=== PATIENT | female | born 1985 | race Caucasian/White ===

== ENCOUNTER 2019-12-16 00:30 | Day surgery (SDC) | payer OTHER, SELFPAY ==
[2019-12-02 13:36] VITALS: BMI 27.8
[2019-12-16] VITALS (11 sets, daily range): BP systolic 106–142; BP diastolic 50–86; PULSE 81–108; RESP 11–15; TEMP 36.5–36.7; O2SAT 95–100
[2019-12-16 11:25] LABS: Hematocrit 42.8 % (37.0-47.0); Hemoglobin 13.6 g/dL (12.0-15.0); Mean Corpuscular HGB Conc 31.8 g/dl (32-36); Mean Corpuscular Hemoglobin 27.5 pg (26-34); Mean Corpuscular Volume 86.6 fl (80-100); Mean Platelet Volume 10.3 fl (7.4-10.4); Platelet Count Result 264 k/mm3 (150-375); Red Blood Count 4.94 M/mm3 (4.2-5.4); Red Cell Distribution Width 13.8 % (11.5-14.5); White Blood Count 8.2 K/mm3 (4.5-10.0)
[2019-12-16] MEDS: LACTATED RINGERS 1,000 ML 30 ML IV CONT ×2 (11:32→14:34)
--- NOTE | 2019-12-16 11:43 | WPDANESEPPF ---
Anes - Initial Pre Proc Eval Procedure: Operation Date: 12/16/19 13:00 Proposed Procedures p Laparoscopic Bilateral Tubal Ligation with Salpingectomy - Francisca Novak MD Date/Time: 12/16/19 11:43 Surgeon: Francisca Novak MD Pre Op Diagnosis: desired sterilization Patient Data Age: 34 Gender: F Height: 5 ft 2 in Weight: 68.95 kg Last Vital Signs Temp 98.0 F 12/16/19 11:26 Pulse 81 12/16/19 11:26 Resp 14 12/16/19 11:26 BP 111/73 12/16/19 11:26 Pulse Ox 100 12/16/19 11:26 Allergies Allergy/AdvReac Type Severity Reaction Status Date / Time codeine Allergy Unknown syncope Verified 12/16/19 10:55 Bumble Bee Allergy Unknown Anaphylactic Uncoded 12/16/19 10:55 Shock Home Medications Medication Instructions Recorded Confirmed Type epinephrine 0.3 mg IM DIRECTED PRN 12/02/19 12/16/19 History escitalopram oxalate 10 mg PO DAILY 12/02/19 12/16/19 History trazodone 100 mg PO HS 12/02/19 12/16/19 History Laboratory Tests 12/16/19 11:17 WBC 8.2 K/mm3 K/mm3 (4.5-10.0) RBC 4.94 M/mm3 M/mm3 (4.2-5.4) Hgb 13.6 g/dL g/dL (12.0-15.0) Hct 42.8 % % (37.0-47.0) MCV 86.6 fl fl (80-100) MCH 27.5 pg pg (26-34) MCHC 31.8 g/dl L g/dl (32-36) RDW 13.8 % % (11.5-14.5) Plt Count 264 k/mm3 k/mm3 (150-375) MPV 10.3 fl fl (7.4-10.4) Patient hx anesthesia problems: none Family hx anesthesia problems: none PMFSH Past Medical History Medical History Depression Anes - Eval Final PreProcedure Day of Procedure 12/16/19 11:43 Patient weight: normal Heart: regular rate and rhythm Lungs: clear to auscultation Airway: Mallampati scale class II Neurological: alert and oriented Last oral intake: >/= 8 hours ASA classification: II Emergent: no Anesthetic plan: proceed Anesthesia type and monitoring: general ETT and standard monitoring Informed Consent: The patient's anesthetic plan and its attendant risks and benefits were discussed with the patient/family/POA. Questions were solicited and answers provided to the satisfaction of the patient/family/POA.
--- NOTE | 2019-12-16 13:16 | PM.IMHP ---
H&P: HPI History of Present Illness Chief complaint: desired sterilization Narrative: Gege Queen is a 34 year old female here for desired sterilization. R/b/a all discussed in the office Review of Systems Review of Systems: All systems reviewed & are unremarkable except as noted in HPI and below Constitutional: Constitutional: Reports no additional constitutional complaints Eyes: Eyes: Reports no additional eye complaints ENT: Reports system reviewed and no additional complaints, except as documented Cardiovascular: Cardiovascular: Reports no additional cardiovascular complaints Respiratory: Respiratory: Reports no additional respiratory complaints Gastrointestinal: Gastrointestinal: Reports no additional gastrointestinal complaints Genitourinary: Genitourinary: Reports no additional female genitourinary complaints Musculoskeletal: Musculoskeletal: Reports no additional musculoskeletal complaints Integumentary/Breasts: Skin/Breast: Reports system reviewed and no additional complaints, except as docu Neurologic: Reports system reviewed and no additional complaints, except as documented Psychiatric: Psychiatric: Reports no additional psychiatric complaints PMFSH Past Medical History Medical History Depression Meds Home Medications and Allergies Home Medications Medication Instructions Recorded Confirmed Type epinephrine 0.3 mg IM DIRECTED PRN 12/02/19 12/16/19 History escitalopram oxalate 10 mg PO DAILY 12/02/19 12/16/19 History trazodone 100 mg PO HS 12/02/19 12/16/19 History Allergies Allergy/AdvReac Type Severity Reaction Status Date / Time codeine Allergy Unknown syncope Verified 12/16/19 10:55 Bumble Bee Allergy Unknown Anaphylactic Uncoded 12/16/19 10:55 Shock Vital Signs Vital Signs - 24 hr 12/16/19 11:26 Temperature 36.7 C Pulse Rate 81 Respiratory Rate 14 Blood Pressure 111/73 Pulse Oximetry 100 Exam Const: General: no acute distress HENMT: Ears: TM's normal bilaterally and TM abnormal Eyes: General: appearance normal, both eyes and all related structures Neck: Neck: supple and no JVD Resp: Auscultation: clear to auscultation bilaterally Cardio: Rate: regular rate Rhythm: regular rhythm GI: GI Palp: Yes Soft to palpation : External Female Exam: normal external appearance Skin: General skin exam: normal color and no rashes or lesions noted Neuro: General: gait normal Speech: normal speech Extrem: General: normal to inspection Psych: Mental Status: mental status grossly normal Affect: normal affect H&P: Results Labs Labs: Short CBC 12/16/19 Range/Units 11:17 WBC 8.2 (4.5-10.0) K/mm3 Hgb 13.6 (12.0-15.0) g/dL Hct 42.8 (37.0-47.0) % Plt Count 264 (150-375) k/mm3 Assessment and Plan Additional Plan Plan is for sterilization via laparoscopy. Risk/benefits/alternatives discussed. Plan bilateral salpingectomy per pt request
[2019-12-16] MEDS: KETOROLAC 30 MG/ML VIAL (*BKC) IV PUSH (14:18)
[2019-12-16] MEDS: BUPIVACAINE/EPINEPHRINE 0.5% 30 ML VIAL INFILTRATE (14:23)
--- NOTE | 2019-12-16 14:33 | PM.PROC ---
Procedure Note - Detailed Date of procedure: 12/16/19 Pre-op diagnosis: desired sterilization Post-op diagnosis: other (desired sterilization. Bowel adhesions on left) Procedure performed: Laparoscopic right salpingectomy, left partial salpingectomy/tubal interruption Description of procedure: The patient was taken to the operating room where general was found to be adequate. She was then prepared in dorsal lithotomy position in [facility]. A jean baptiste catheter was placed. A speculum was placed within the vagina and single toothed tenaculum placed on the anterior lip. The uterine manipulator was placed within the cervix and affixed to the tenaculum. Attention was turned to the umbilicus which was injected with 0.5% marcaine with epinephrine, incised in the infraumbilical fold with scalpel and hemastat used to separate the tissue. A veres needle used to enter into the peritneal cavity and the abdomen was insufflated with CO2. Pneumoperitoneum was insufflated to 15mmHg. The 5mm port was then placed with optical entry. The patient was placed in trendelenberg. A suprapubic port was then placed similarly with direct visualization. A left lower quadrant port was placed 2 finger breadths medial to ASIS. The right tube and ovary were easily visible but the left tube and ovary were buried under a bowel adhesion. I could flip the ovary out a bit to view it to be normal but the left tube could not be fully exposed. The main portion of the central portion of the tube was visible however. So the 5mm ligasure was attempted to be used but the machine would not allow plugs to be inserted. So while the RN was waiting on the other ligasure base to be available from the next room, monopolar cautery was used on grasper to cauterize the tuboovarian ligament on the right, then down the broad ligament. Approximately 1cm of tube was left to allow transection with monopolar cautery scissors and get adequate hemostasis. The right tube pulled through the 5mm port and sent to pathology. Moving to the left, partial tubal interruption was planned due to the bowel adhesion. So approximately a 2cm portion of tube was pulled upward. Then a larger vessel within the broad ligament began to bleed. This was held for hemostasis and the other Ligasure base was then available so the ligasure was attached and able to be used. So the fallopian tube was transected near the fimbriated end with the ligasure, the vessel was then transected wiithin the broad ligament with good hemostasis, and the proximal portion of the tube was also transected. This two centimeter portion of tube was pulled through the 5mm port and sent to pathology. Good hemostasis noted from both sides. The transected stump of the tube on the right was cauterized. The procedure was then complete. The pneumoperitoneum was released and the 5mm port was pulled from LLQ. The patient was taken out of Trendelenberg and the umbilical port removed. Then the suprapubic port removed. All incisions closed with 4-0 monocryl. The instruments were removed from the vagina and the tenaculum sites were hemostatic. The jean baptiste removed. All instruments, laps, and needle counts were correct. Anesthesia: GLMA Surgeon: Francisca Novak MD Estimated blood loss (mL): 5 Urine output (mL): 50 Drains: No Packing: No Pathology: yes (Right salpingectomy with fimbria, left partial salpingectomy) Complications: No immediate complications Condition: stable Findings: Adhesions of bowel on left covering fibria and ovary on left
== END 2019-12-16 17:05 | disposition home or self-care (01) ==
PROVIDERS: Visit Provider Obstetrics & Gynecology
PROC: (CPT 49320; principal; 2019-12-16 13:00)
DX: Z30.2 Encounter for sterilization (principal); N83.8 Other noninflammatory disorders of ovary, fallopian tube and broad ligament; F32.9 Major depressive disorder, single episode, unspecified
CPT/HCPCS: 58661; 36415; 85027; 88302; A9270; J0330; J1100; J1885; J2250; J2405; J2704; J3010; J7030; J7120